=== PATIENT | male | born 1990 | race Caucasian/White ===

== ENCOUNTER 2017-07-18 23:17 | Emergency (ER) | payer OTHER ==
[2017-07-18] MEDS ORDERED: OXYCODONE/APAP 5/325MG PREPACK#4 BTL TAKEHOME ONE (23:34)
--- NOTE | 2017-07-18 23:37 | EDPHY ---
General Narrative: CHIEF COMPLAINT: Shoulder injury playing hockey, pain, previous dislocations HISTORY OF PRESENT ILLNESS: Patient complains of left shoulder dislocation. He was playing hockey immediately prior to arrival when he was checked up into the air, landing directly on the left shoulder. Sudden onset of pain. No numbness or tingling. No head strike or loss of conscious. No back pain. No injury to the right arm. No injuries allegedly abdomen. He has a history of previous dislocation of the left shoulder that resulted in a slap injury with subsequent surgical repair. This pain is severe, 10/10. Does not radiate. Unable to move the arm due to pain. No other associated complaints or modifying factors. ESTABLISHED ORTHOPEDIST: Dr. Demar Morris in [place] REVIEW OF SYSTEMS: Ten systems reviewed and are negative unless otherwise noted in the HPI PAST MEDICAL HISTORY: Shoulder dislocation with slap tear and Bankart lesion PAST SURGICAL HISTORY: Left shoulder labral reconstruction SOCIAL HISTORY: Nonsmoker. Currently a grad student at [employer] FAMILY HISTORY: Noncontributory EXAMINATION General Appearance: Alert, no distress Cardiovascular: Pulses normal throughout. Symmetric radial pulses 2+. Brisk cap refill Neurological: A&O, sensory symmetric, strength symmetric. No wrist drop. Skin: Warm and dry, no rash. No lacerations, punctures or abrasions Extremities: Significant tenderness of the left shoulder. Range of motion not tested due to obvious deformity with step-off and dislocation. Neurovascular intact distal to the left shoulder dislocation. Range of motion of the left fingers and wrist intact. Psychiatric: Mood and affect normal DIFFERENTIAL DIAGNOSES: Including but not limited to shoulder dislocation, fracture, sprain, strain MDM: 11:35 p.m. Left shoulder dislocation that has been reduced with intra-articular lidocaine. Neurovascular intact pre and postprocedure. Tolerated well. X-ray has been ordered. He has a previous history of dislocation status post labral repair. Reports a previous diagnosis of Bankart lesion. 11:59 p.m. X-ray as read by me reveals a well reduced shoulder with anatomic alignment. There is evidence of previous Bankart lesion. There may or may not be a superimposed lesion/fracture from today. He remains neurovascular intact. We will provide a copy of the images for him. He will be discharged home with a sling. He will follow up with his established orthopedist. ED precautions discussed. He is comfortable with this plan. PROCEDURE: Closed reduction of shoulder Consent: Verbal Location: Left shoulder Anesthesia: Intra-articular lidocaine, 1% lidocaine plain. 6 mL. This was done without procedural sedation Procedure: Verbal consent obtained. After intra-articular injection, traction was placed in conjunction with scapular Pro traction and massage of the humeral head. Successful reduction all 1st attempt. Tolerated well without complication. Good anatomic alignment by visualization. Complications: None Post-reduction film: Anatomic alignment. Old fracture evident without any new fracture evident on proximal humerus ED Precautions: Worsening pain. Erythema, edema, cyanosis, pallor, paresthesia or anesthesia. - Diagnostics Imaging Results: Imaging Impressions Shoulder X-Ray 07/18/17 23:33 Impression: Normal location of the shoulder after reduction. - History Smoking Status: Never smoked - Objective Vital Signs: Initial Vital Signs Temperature (C) 98.4 F 07/18/17 23:19 Heart Rate 83 07/18/17 23:19 Respiratory Rate 20 07/18/17 23:19 Blood Pressure 149/91 H 07/18/17 23:19 O2 Sat (%) 94 07/18/17 23:19 O2 Delivery Mode Room Air Allergies/Adverse Reactions: No Known Allergies Allergy (Unverified 07/18/17 23:19) Home Medications: Medication Instructions Recorded oxyCODONE HCL/ACETAMINOPHEN 1 each PO Q4-6PRN PRN #13 tablet 07/19/17 [Percocet 5-325 mg Tablet] Medications Given: Discontinued Medications Oxycodone/Acetaminophen (Percocet 5/325mg Prepack#4) 1 btl [facility] Stop: 07/18/17 23:35 Last Admin: 07/19/17 00:03 Dose: 1 btl Departure - Departure Disposition: Home, Routine, Self-Care Clinical Impression: Shoulder dislocation, recurrent Qualifiers: Laterality: left Qualified Code(s): M24.412 - Recurrent dislocation, left shoulder Acute shoulder pain Qualifiers: Laterality: left Qualified Code(s): M25.512 - Pain in left shoulder Condition: Good Instructions: Oxycodone/Acetaminophen (By mouth), Shoulder Dislocation (ED), Proximal Humerus Fracture (ED) Additional Instructions: 1. Nonweightbearing until seen by Orthopedics for definitive care 2. Return to ER for neurovascular changes as discussed 3. Ibuprofen 600-800 every 8 hours as needed for pain 4. Percocet as prescribed as needed for severe pain Referrals: Quoc Rubalcava MD [Medical Doctor] - As per Instructions Prescriptions: oxyCODONE HCL/ACETAMINOPHEN [Percocet 5-325 mg Tablet] 1 each PO Q4-6PRN PRN # 13 tablet PRN Reason: Pain, Breakthrough
[2017-07-19 00:27] VITALS: BP 138/68; PULSE 77; RESP 14; TEMP 97.9; O2SAT 98
== END 2017-07-19 00:26 | disposition home or self-care (01) ==
PROC: 0RSKXZZ Reposition Left Shoulder Joint, External Approach (ICD-10-PCS; principal; 2017-07-18)
DX: M24.412 Recurrent dislocation, left shoulder (principal)